=== PATIENT | male | born 1955 | race Caucasian/White ===

== ENCOUNTER 2019-06-05 11:22 | Emergency (ER) | payer OTHER ==
[~2019-06-05] VITALS: Ht 170 cm; Wt 81.0 kg
[2019-06-05] MEDS ORDERED: TETANUS,DIPTH,PERTUSS P/F (BOOSTRIX) 0.5 ML VIAL IM ONE (11:45)
[2019-06-05 12:05] LABS: BASOPHILS % (AUTO) 0 % (0-10); EOSINOPHILS # (AUTO) 0.1 10^3/uL (0.0-0.3); EOSINOPHILS % (AUTO) 1 % (0-10); HEMATOCRIT 35 % (40-54); HEMOGLOBIN 12.3 G/DL (13.3-17.7); LYMPHOCYTES # (AUTO) 0.6 X 10^3 (1.0-4.0); LYMPHOCYTES % (AUTO) 11 % (12-44); MEAN CORPUSCULAR HEMOGLOBIN 35 PG (25-34); MEAN CORPUSCULAR HGB CONC 35 G/DL (32-36); MEAN CORPUSCULAR VOLUME 100 FL (80-99); MONOCYTES # (AUTO) 0.6 X 10^3 (0.0-1.0); MONOCYTES % (AUTO) 11 % (0-12); NEUTROPHILS # (AUTO) 4.1 X 10^3 (1.8-7.8); NEUTROPHILS % (AUTO) 77 % (42-75); PLATELET COUNT 197 10^3/uL (130-400); RED CELL DISTRIBUTION WIDTH 12.8 % (10.0-14.5); WHITE BLOOD COUNT 5.4 10^3/uL (4.3-11.0)
[2019-06-05 12:17] LABS: INR 0.9 (0.8-1.4); PROTHROMBIN TIME PATIENT 12.8 SEC (12.2-14.7)
[2019-06-05 12:20] LABS: CREATININE SERUM 1.49 MG/DL (0.60-1.30); POTASSIUM 4.1 MMOL/L (3.6-5.0)
[2019-06-05 12:21] LABS: ALBUMIN 4.4 GM/DL (3.2-4.5); BILIRUBIN,TOTAL 0.8 MG/DL (0.1-1.0); CALCIUM 9.8 MG/DL (8.5-10.1); TOTAL PROTEIN 7.6 GM/DL (6.4-8.2)
[2019-06-05 12:33] LABS: ERYTHROCYTE SEDIMENTATION RATE 58 MM/HR (0-30)
--- NOTE | 2019-06-05 12:54 | Diagnostic Imaging Report ---
INDICATION: Pain and swelling. FINDINGS: There is a markedly comminuted fracture of the calcaneus with loss of Boehler's angle. There is no other fracture or dislocation. Soft tissues are unremarkable. IMPRESSION: Markedly comminuted calcaneal fracture. Dictated by: Dictated on workstation # [id number]
--- NOTE | 2019-06-05 13:09 | Diagnostic Imaging Report ---
PROCEDURE: CT right lower extremity without contrast. TECHNIQUE: Axially acquired CT was obtained through the right lower extremity without intravenous contrast. Coronal and sagittal reformations were also performed. Auto Exposure Controls were utilized during the CT exam to meet ALARA standards for radiation dose reduction. INDICATION: Pain. FINDINGS: There is a markedly comminuted fracture of the calcaneus with loss of Boehler's angle. The plafond and talar dome remain intact. Ankle mortise is symmetric. There is no other fracture or dislocation. Soft tissues are grossly unremarkable apart from swelling. There are degenerative changes of first metatarsophalangeal joint. IMPRESSION: Markedly comminuted fracture of the os calcis. Degenerative changes of the first metatarsophalangeal joint. Dictated by: Dictated on workstation # [id number]
--- NOTE | 2019-06-05 13:10 | Diagnostic Imaging Report ---
INDICATION: Injury to right ankle. AP, oblique, and lateral views of the right ankle are obtained. There is a markedly comminuted fracture of the calcaneus, with extension to the talocalcaneal joints. There is a calcification inferior to the medial malleolus of the distal tibia of uncertain age. There is calcification lateral to the lateral malleolus which is also of uncertain age. There are vascular calcifications. IMPRESSION: Markedly comminuted fracture of the calcaneus as described above. There are calcifications near the lateral and medial malleoli which are of uncertain age but likely chronic. Dictated by: Dictated on workstation # [id number]
--- NOTE | 2019-06-05 13:47 | Diagnostic Imaging Report ---
PROCEDURE: US right lower extremity venous. TECHNIQUE: Multiple real-time grayscale images were obtained over the right lower extremity in various projections. Additional spectral analysis and color Doppler duplex images were also obtained. INDICATION: Pain and swelling. FINDINGS: The right common femoral, superficial femoral, popliteal veins and tibial veins demonstrate normal response to compression, augmentation, and Valsalva. There are no right lower extremity fluid collections or masses. IMPRESSION: No evidence of deep vein thrombosis in the right lower extremity. Dictated by: Dictated on workstation # [id number]
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
--- NOTE | 2019-06-05 13:58 | Diagnostic Imaging Report ---
INDICATION: Broken foot. TECHNIQUE: Multiple real-time grayscale images were obtained of the right lower extremity in various projections. The postoperative color Doppler images were also obtained FINDINGS: There are normal triphasic waveforms in the right common femoral artery, superficial femoral artery and popliteal artery. There are monophasic waveforms in the distal posterior tibial and dorsalis pedis artery compatible with small vessel disease. There are no abnormal fluid collections or masses. IMPRESSION: Findings suspect for small vessel disease below the knee. Proximal arterial system is widely patent Dictated by: Dictated on workstation # [id number]
[2019-06-05] MEDS ORDERED: ceFAZolin INJECTION 1,000 MG in WATER (STERILE) FOR INJECTION 10 ML IV ONE (14:15)
[2019-06-05] MEDS ORDERED: VANCOMYCIN INJECTION 1,000 MG in NS (IVPB) 250 ML IV ONE (14:15)
[2019-06-05] MEDS ORDERED: LOSA100T57 PO (14:54)
[2019-06-05] MEDS ORDERED: SULF1TAB35 PO (14:54)
[2019-06-05] MEDS ORDERED: ASPI-586 PO (14:54)
[2019-06-05] MEDS ORDERED: HYDROCHLOROT PO (14:54)
[2019-06-05] MEDS ORDERED: ATOR40TA70 PO (14:54)
[2019-06-05] MEDS ORDERED: AMLO10TA7 PO (14:54)
[2019-06-05] MEDS ORDERED: LACTATED RINGERS 1,000 ML IV ONE ×2 (15:07→15:11)
[2019-06-05] MEDS ORDERED: MUPIROCIN 2% OINT 22 GM (BACTROBAN) TUBE ONE (15:11)
[2019-06-05 17:59] VITALS: BP 134/73
[2019-06-05] MEDS ORDERED: MUPIROCIN 2% OINT 22 GM (BACTROBAN) TUBE TOP SCH (21:00)
== END 2019-06-05 17:58 | disposition short-term general hospital (02) ==
LOC: EDUNIT# 11:22 → ER 11:25
DX: S92.001A Unspecified fracture of right calcaneus, initial encounter for closed fracture (principal); L03.115 Cellulitis of right lower limb; I10 Essential (primary) hypertension; E78.00 Pure hypercholesterolemia, unspecified; K21.9 Gastro-esophageal reflux disease without esophagitis; F17.210 Nicotine dependence, cigarettes, uncomplicated; Z23 Encounter for immunization; Z79.82 Long term (current) use of aspirin; W23.1XXA Caught, crushed, jammed, or pinched between stationary objects, initial encounter
CPT/HCPCS: 36415; 73610; 73630; 73700; 80053; 83605; 85025; 85610; 85652; 85730; 86141; 87040; 87070; 87077; 87186; 87205; 90471; 90715; 93926; 96361; 96365; 96375

== ENCOUNTER → 2020-07-30 | Outpatient (CLI) | payer OTHER ==
[~2020-07-30] MED LIST: AMLO-251 PO; ASPI-586 PO; ATOR40TA70 PO; HYDROCHLOROT PO; LOSA100T57 PO; SULF1TAB35 PO
== END ==
LOC: CARD 11:18
PROVIDERS: ATTEND Internal Medicine Cardiovascular Disease
DX: I51.7 Cardiomegaly (principal)
CPT/HCPCS: 93306

== ENCOUNTER → 2020-08-20 | Outpatient (CLI) | payer OTHER ==
[~2020-08-20] VITALS: Ht 167 cm; Wt 82.0 kg
[~2020-08-20] MED LIST changes: +CATHETER FLUSH 10 ML SYR IV PRN; +REGADENOSON 0.4 MG/5 ML SYR (LEXISCAN) IV ONE
[2020-08-20 12:47] VITALS: BP 147/80
--- NOTE | 2020-08-20 14:44 | Cardiology Stress Test Report ---
Stress Test Report Date of Procedure/Referring: Date of Procedure: Aug 20, 2020 PCP Fernando Tolbert MD Admitting Physician Jolynn Thao DO Indications: Chest pain Baseline Heart Rate: 63 Baseline Blood Pressure: Blood Pressure Systolic: 147 Blood Pressure Diastolic: 80 Baseline Vitals Vital Signs Date Time Temp Pulse Resp B/P (MAP) Pulse Ox O2 Delivery O2 Flow Rate FiO2 08/20/20 12:47 62 18 147/80 (102) 97 Room Air Baseline EKG: Baseline EKG: normal sinus rhythm Summary After explaining the procedure to the patient, he signed a consent and then brought to the stress nuclear laboratory. Patient received 0.4 mg Lexiscan for stress test, ECG, heart rate and blood pressure were monitored continuously. Resting and stress dose of radio tracer were injected, imaging was acquired and reviewed in short axis, horizontal long axis and vertical long axis views. TID: 1.01 SSS: 8 SDS: 4 EF: 50 1. Patient tolerated Lexiscan well 2. Diaphragmatic attenuation with decreased uptake involving the mid to apical inferior wall and inferolateral wall with mild reversibility 3. Normal left ventricular size, EF 50 percent FERNANDO TOLBERT MD Aug 20, 2020 14:44
== END ==
LOC: CARD 11:15
PROVIDERS: ATTEND Internal Medicine Cardiovascular Disease
DX: R07.9 Chest pain, unspecified (principal)
CPT/HCPCS: 78452; 93017; A9502

== ENCOUNTER 2020-08-27 13:00 | Day surgery (SDC) | payer OTHER ==
[2020-08-27] VITALS (11 sets, daily range): BP systolic 117–155; BP diastolic 70–90
[~2020-08-27] VITALS: Ht 172 cm; Wt 82.0 kg
[2020-08-27 11:36] LABS: HEMOGLOBIN 17.6 g/dL (13.3-17.7); MEAN PLATELET VOLUME 9.2 fL (9.0-12.2); WHITE BLOOD COUNT 5.5 10^3/uL (4.3-11.0)
[2020-08-27 11:41] LABS: BILIRUBIN,URINE NEGATIVE (NEGATIVE); CLARITY,URINE CLEAR; COLOR,URINE YELLOW; GLUCOSE, URINE (UA) NEGATIVE (NEGATIVE); KETONES,URINE NEGATIVE (NEGATIVE); LEUKOCYTE ESTERASE ,URINE NEGATIVE (NEGATIVE); NITRITE,URINE NEGATIVE (NEGATIVE); PROTEIN,URINE NEGATIVE (NEGATIVE)
[2020-08-27 11:49] LABS: BACTERIA,URINE NEGATIVE /HPF; SQUAMOUS EPITHELIAL CELL,UR RARE /HPF
[2020-08-27 11:51] LABS: CHLORIDE 105 MMOL/L (98-107); POTASSIUM 4.6 MMOL/L (3.6-5.0); SODIUM 138 MMOL/L (135-145)
[2020-08-27 11:52] LABS: ALBUMIN 4.6 GM/DL (3.2-4.5)
[2020-08-27 11:53] LABS: CALCIUM 9.4 MG/DL (8.5-10.1)
[2020-08-27 11:54] LABS: GLUCOSE 94 MG/DL (70-105); PROTHROMBIN TIME PATIENT 13.2 SEC (12.2-14.7); TOTAL PROTEIN 8.1 GM/DL (6.4-8.2); TRIGLYCERIDES 200 MG/DL (<150); VLDL CHOLESTEROL 40 MG/DL (5-40)
[2020-08-27 11:55] LABS: CARBON DIOXIDE 23 MMOL/L (21-32)
[2020-08-27 11:56] LABS: BILIRUBIN,TOTAL 0.6 MG/DL (0.1-1.0)
[2020-08-27 11:58] LABS: ALKALINE PHOSPHATASE 108 U/L (40-136); CREATININE SERUM 1.11 MG/DL (0.60-1.30); GFR ESTIMATED > 60
[2020-08-27 11:59] LABS: BUN/CREATININE RATIO 11; CHOLESTEROL 220 MG/DL (< 200)
[2020-08-27 12:00] LABS: HDL CHOLESTEROL 45 MG/DL (40-60)
--- NOTE | 2020-08-27 12:00 | Diagnostic Imaging Report ---
INDICATION: Chest pain. EXAMINATION: Portable chest at 11:50 AM. FINDINGS: The heart size and pulmonary vascularity are normal. The lungs are clear. There are no effusions or pneumothoraces. IMPRESSION: No acute abnormalities in the chest. Dictated by: Dictated on workstation # [id number]
[2020-08-27 12:01] LABS: ALANINE AMINOTRANSFERASE 35 U/L (0-55)
--- NOTE | 2020-08-27 12:49 | Cardiac Procedure Note-CS/ASA ---
Pre-Procedure Note Pre-Op Procedure Note H&P Reviewed The H&P was reviewed, patient examined and no changes noted. Date H&P Reviewed: Aug 27, 2020 Time H&P Reviewed: 12:49 Conscious Sedation Pre-Proced Time 12:49 ASA Score 3 For ASA 3 and 4: Consider anesthesia and medical clearance. Also, for patients with a history of failed moderate sedation consider anesthesia. Airway Lungs Heart ASA score ASA 1: a normal healthy patient ASA 2: a patient with a mild systemic disease (mid diabetes, controlled hypertension, obesity x ASA 3: a patient with a severe systemic disease that limits activity (angina, COPD, prior Myocardial infarction) ASA 4: a patient with an incapacitating disease that is a constant threat to life (CHF, renal failure) ASA 5: a moribund patient not expected to survive 24 hrs. (ruptured aneurysm) ASA 6: a declared brain- patient whose organs are being harvested. For emergent operations, add the letter E after the classification Mallampati Classification Grade 3 Sedation Plan Analgesia, Amnesia, Plan communicated to team members, Discussed options with patient/fam, Discussed risks with patient/fam The patient is an appropriate candidate to undergo the planned procedure, sedation, and anesthesia. The patient immediately re-assessed prior to indication. FERNANDO HOSKINS MD Aug 27, 2020 12:49
[~2020-08-27 13:00] MED LIST changes: +ATOR10TA PO; -CATHETER FLUSH 10 ML SYR IV PRN; +HEParin (CATH LAB) 2,000 ML IV ONE; +LIDOCAINE 1% INJ 20 ML 20 ML VIAL ONE; +MIDAZOLAM 5 MG/5 ML (VERSED) VIAL ONE; +MTP25TSR PO; +NITRO DRIP 25000 MCG/D5W 0 ML IV ONE; +NS IV 1000 ML 1,000 ML IV SCH; +NS IV 1000 ML 1,000 ML ONE; +PATIENT MAY USE OWN MEDS, ALL PO SCH; -REGADENOSON 0.4 MG/5 ML SYR (LEXISCAN) IV ONE; +fentaNYL INJECTION 100 MCG/2 ML AMP ONE
--- NOTE | 2020-08-27 13:00 | Cardiac Cath Report ---
Cardiac Cath Report Physician (s)/Glove Turner (s) Physician FERNANDO HOSKINS MD Pre-Procedure Diagnosis Pre-Procedure Diagnosis: coronary artery disease Post-Procedure Note Procedure Start Date: Aug 27, 2020 Name of Procedure: Left heart catheterization Left ventriculogram Aortic arch angiogram Findings/Procedure Note PROCEDURE NOTE: 64 years old gentleman with history of recurrent chest pain, strong family history of heart disease, had an abnormal stress test scheduled for cardiac catheterization possible PTCA. After explaining the procedure to the patient, all pros and cons were explained, all questions were answered. The patient signed the consent and then he was placed on the cardiac catheterization laboratory. Groin was prepped SL fashion local anesthesia was used. Sheath placed in the right femoral artery. Keli right and left catheter were used to access the coronary system. Pigtail was used to access the left ventricular cavity. Left ventriculogram was done Aortic arch angiogram was done At the end of the procedure the sheath was removed. Closure device was deployed FINDINGS: Hemodynamics LV 114/20, end-diastolic pressure of 20 Aorta 120/62 main of 84 ANATOMY: Left Main is free of obstructive disease Left Anterior Descending has moderate to severe lesion in the midportion Left Circumflex has severe stenosis proximally Ramus intermedius/high obtuse marginal has moderate severe lesion at the midportion Right Coronory Artery is totally occluded at the ostium, getting filled by collaterals from the left LV Gram was done showing normal left ventricular size, mild hypokinesia at the inferior wall, ejection fraction 50 percent Aorta evaluation done with aortic arch angiogram showing normal aortic arch, no dissection or aneurysm, normal origin of the right innominate artery, left carotid artery and left subclavian artery CONCLUSION: 1. Severe multivessel coronary artery disease including occluded right coronary artery, severe proximal to mid right coronary artery stenosis and moderate to severe mid LAD stenosis, the ramus intermedius has moderate to severe lesion at the midportion. 2. Normal left ventricular size, mild hypokinesia at the inferior wall, ejection fraction 50 percent 3. Normal aortic arch and great vessels of the neck DISCUSSION AND RECOMMENDATION: I will arrange for evaluation for possible CABG versus high risk intervention as an outpatient Anesthesia Type: Conscious Sedation Estimated blood loss (mL): 20 ml Contrast Amount: 54 ml Total Radiation Dose: 457 mGy Post-Procedure Diagnosis Post-operative diagnosis: Chest pain Coronary artery disease Hypertension Hyperlipidemia FERNANDO HOSKINS MD Aug 27, 2020 13:00
== END 2020-08-27 17:35 ==
LOC: SDC 13:19 → CATH 17:35
PROVIDERS: ATTEND Internal Medicine Cardiovascular Disease
DX: I25.10 Atherosclerotic heart disease of native coronary artery without angina pectoris (principal); I10 Essential (primary) hypertension; E78.2 Mixed hyperlipidemia; F17.210 Nicotine dependence, cigarettes, uncomplicated; Z79.82 Long term (current) use of aspirin; Z79.899 Other long term (current) drug therapy; Z82.49 Family history of ischemic heart disease and other diseases of the circulatory system
CPT/HCPCS: 71045; 80053; 80061; 81000; 85027; 85610; 85730; 87081; 93458; C1760; C1894; 36415

== ENCOUNTER → 2020-09-01 | Outpatient (CLI) | payer OTHER ==
[~2020-09-01] MED LIST changes: -HEParin (CATH LAB) 2,000 ML IV ONE; -LIDOCAINE 1% INJ 20 ML 20 ML VIAL ONE; -MIDAZOLAM 5 MG/5 ML (VERSED) VIAL ONE; -NITRO DRIP 25000 MCG/D5W 0 ML IV ONE; -NS IV 1000 ML 1,000 ML IV SCH; -NS IV 1000 ML 1,000 ML ONE; -PATIENT MAY USE OWN MEDS, ALL PO SCH; -fentaNYL INJECTION 100 MCG/2 ML AMP ONE
--- NOTE | 2020-09-01 15:34 | Diagnostic Imaging Report ---
PROCEDURE: US carotid duplex, bilateral. TECHNIQUE: Multiple real-time grayscale images were obtained over the carotid arteries in various projections, bilaterally. Additional spectral analysis and color Doppler duplex images were also obtained. INDICATION: Coronary artery disease. FINDINGS: There is moderate plaque in bilateral carotid bulbs extending into the proximal internal carotid arteries bilaterally. This appears to be slightly greater on the right side than the left. No significant velocity elevation is seen. Right vertebral artery was not visualized. Left vertebral artery demonstrates antegrade flow. IMPRESSION: 1. Moderate bilateral carotid plaque. There is no evidence of a hemodynamically significant stenosis. 2. Nonvisualized right vertebral artery. Parameters based on the consensus panel Haas-Scale and Doppler ultrasound criteria published April 2003, Radiology, Volume 229. DOPPLER (peak systolic velocity M/S Right Left CCA .79 1.1 ICA Proximal 1.14 .97 ICA Mid 1.1 1.0 ICA Distal .91 .70 RATIO 1.4 .94 ECA 1.32 1.27 VERT NA .43 Dictated by: Dictated on workstation # [id number]
== END ==
LOC: RAD 12:30
PROVIDERS: ATTEND Thoracic Surgery (Cardiothoracic Vascular Surgery)
DX: I25.118 Atherosclerotic heart disease of native coronary artery with other forms of angina pectoris (principal); I65.23 Occlusion and stenosis of bilateral carotid arteries
CPT/HCPCS: 93880

== ENCOUNTER → 2020-09-26 | Outpatient (CLI) | payer OTHER | LOC: LABNPT 08:52 | PROVIDERS: ATTEND Neurological Surgery | DX: Z20.822 Contact with and (suspected) exposure to COVID-19 (principal) | CPT/HCPCS: 87635 ==

== ENCOUNTER → 2020-10-21 | Outpatient (CLI) | payer OTHER ==
[2020-10-21 11:43] LABS: BUN/CREATININE RATIO 11; CALCIUM 9.8 MG/DL (8.5-10.1); CARBON DIOXIDE 21 MMOL/L (21-32); CHLORIDE 97 MMOL/L (98-107); CREATININE SERUM 1.09 MG/DL (0.60-1.30); GFR ESTIMATED > 60; GLUCOSE 106 MG/DL (70-105); SODIUM 131 MMOL/L (135-145)
== END ==
LOC: LAB 10:57
PROVIDERS: ATTEND Physician Assistant
DX: E87.6 Hypokalemia (principal)
CPT/HCPCS: 36415; 80048

== ENCOUNTER → 2021-12-23 | Outpatient (CLI) | payer OTHER ==
[~2021-12-23] VITALS: Ht 170.2 cm; Wt 80.7 kg
[~2021-12-23] MED LIST changes: -SULF1TAB35 PO; +SULF1TAB38 PO
== END | disposition home or self-care (01) ==
LOC: PREOP 06:05
PROVIDERS: ATTEND Internal Medicine
DX: Z01.818 Encounter for other preprocedural examination (principal)

== ENCOUNTER → 2022-03-16 | Outpatient (CLI) | payer OTHER ==
[~2022-03-16] MED LIST changes: +CATHETER FLUSH 10 ML SYR IV PRN; +HOLD METFORMIN - RECEIVED CONTRAST 20 ML VIAL IV SCH; +IOHEXOL 350 MG/ML 100 ML (OMNIPAQUE 350) VIAL IV ONE; +NS 100 ML (IVPB) BAG IV ONE
--- NOTE | 2022-03-16 16:48 | Diagnostic Imaging Report ---
REASON FOR EXAM: Bilateral carotid artery stenosis. TIME OF EXAM: 03/16/2022 11:16 AM COMPARISON: 09/01/2020. TECHNIQUE: Contrast-enhanced thin section helical images were obtained from the mediastinum to the sella with the bolus of contrast timed for the optimal opacification of the arterial structures of the neck per departmental CTA protocol. Postprocessing and retro-reconstruction with coronal and sagittal reformatted images of the angiographic views of the vessels were obtained and were reviewed. 3D reformatted images were generated on a separate workstation and were reviewed. All CT scans use one or more of the following dose optimizing techniques: automated exposure control, MA and/or KvP adjustment based on patient size and exam type or iterative reconstruction. FINDINGS: The visualized portions of the aortic arch demonstrate no evidence of aneurysm or dissection. There is conventional branching pattern of the great vessels of the aorta. The brachiocephalic artery is normal in course and caliber. The right and left common carotid origins are unremarkable. The origin of the left subclavian artery is patent. The common carotid arteries and internal carotid arteries demonstrate a normal course. There is calcified atherosclerotic plaque in the bilateral carotid bulbs and proximal internal carotid arteries. There is 50 to 69% stenosis in the proximal left ICA based on NASCET criteria. Less than 50% stenosis is seen in the right internal carotid artery. No evidence of dissection in the carotid systems. The external carotid arteries are patent and unremarkable. There is occlusion at the origin of the right vertebral artery. There is reconstitution of flow within the right vertebral artery at the C2-C3 level, likely due to retrograde flow. The origin of the left vertebral artery is off the left subclavian artery. There is stenosis of approximately 80 to 90% at the origin of the left vertebral artery. The remainder of the left vertebral artery is patent. No dissection is seen in the left vertebral artery. The included [place] is unremarkable. The osseous structures of the cervical spine are unremarkable. Included views through the lung apices demonstrate no focal consolidation. IMPRESSION: 1. Stenosis of 50 to 69% in the proximal left ICA secondary to atherosclerotic plaque. 2. Occlusion of the origin of the right vertebral artery with reconstitution of flow at the C2-C3 level, likely due to retrograde flow. 3. Stenosis of approximately 80 to 90% at the origin of the left vertebral artery. Dictated by: Dictated on workstation # [id number]
== END ==
LOC: RAD 10:18
PROVIDERS: ATTEND Physician Assistant
DX: I65.23 Occlusion and stenosis of bilateral carotid arteries (principal); I10 Essential (primary) hypertension
CPT/HCPCS: 36415; 70498; 82565; 84520

== ENCOUNTER → 2022-03-31 | Outpatient (CLI) | payer OTHER ==
[~2022-03-31] MED LIST changes: -CATHETER FLUSH 10 ML SYR IV PRN; -HOLD METFORMIN - RECEIVED CONTRAST 20 ML VIAL IV SCH; -IOHEXOL 350 MG/ML 100 ML (OMNIPAQUE 350) VIAL IV ONE; -NS 100 ML (IVPB) BAG IV ONE; +REGADENOSON 0.4 MG/5 ML SYR (LEXISCAN) IV ONE
[2022-03-31] MEDS: CATHETER FLUSH 10 ML SYR IVP PRN ×2 (08:00→09:37)
[2022-03-31 09:28] VITALS: BP 135/85
--- NOTE | 2022-03-31 11:34 | Cardiology Stress Test Report ---
Stress Test Report Date of Procedure/Referring: Date of Procedure: Mar 31, 2022 PCP Jolynn Thao DO Admitting Physician Admitting Physician: Attending Physician: Alverto Tolbert MD Indications: CAD Baseline Heart Rate: 52 Baseline Blood Pressure: Blood Pressure Systolic: 135 Blood Pressure Diastolic: 85 Baseline Vitals Vital Signs Date Time Temp Pulse Resp B/P (MAP) Pulse Ox O2 Delivery O2 Flow Rate FiO2 03/31/22 09:28 51 20 135/85 (102) 99 Room Air Baseline EKG: Baseline EKG: NSR Summary After explaining the procedure to the patient, he signed a consent and then brought to the stress nuclear laboratory. Patient received 0.4 mg Lexiscan for stress test, ECG, heart rate and blood pressure were monitored continuously. Resting and stress dose of radio tracer were injected, imaging was acquired and reviewed in short axis, horizontal long axis and vertical long axis views. TID: 1.22 SSS: 0 SDS: 0 EF: 53 1. Patient tolerated Lexiscan well 2. No significant ischemia or infarction noted on SPECT images 3. Normal left ventricular size, ejection fraction 53% 4. Transient ischemic dilatation 1.22 suggestive of multivessel coronary artery disease Copy Copies To 1: JOLYNN THAO BASHAR J MD Mar 31, 2022 11:34
== END ==
LOC: CARD 07:41
PROVIDERS: ATTEND Internal Medicine Cardiovascular Disease
DX: I25.10 Atherosclerotic heart disease of native coronary artery without angina pectoris (principal)
CPT/HCPCS: 78452; 93017

== ENCOUNTER 2022-06-16 14:42 | Outpatient (CLI) | payer OTHER ==
[~2022-06-16] VITALS: Ht 170.2 cm; Wt 80.3 kg
[~2022-06-16 14:42] MED LIST changes: -REGADENOSON 0.4 MG/5 ML SYR (LEXISCAN) IV ONE
[2022-06-18] MEDS ORDERED: ATOR40TA70 PO (11:55)
[2022-06-18] MEDS ORDERED: HYDR-3923 PO (11:55)
[2022-06-18] MEDS ORDERED: NEBI20TA6 PO (11:55)
== END 2022-06-18 12:06 | disposition home or self-care (01) ==
LOC: PREOP 14:42
PROVIDERS: ATTEND Internal Medicine
DX: Z01.818 Encounter for other preprocedural examination (principal)

== ENCOUNTER 2022-06-25 07:53 | Day surgery (SDC) | payer OTHER ==
--- NOTE | 2021-12-22 19:47 | HISTORY AND PHYSICAL ---
DATE OF SERVICE: COLONOSCOPY HISTORY AND PHYSICAL HISTORY OF PRESENT ILLNESS: The patient is a 65-year-old white male referred by Dr. Thao for screening colonoscopy. I performed his last colonoscopy 10 years ago at which time he did have one subcentimeter tubular adenoma removed from the proximal sigmoid colon with no other evidence for neoplasia. He denies bright red blood per rectum, melena, abdominal pain, diarrhea, constipation or change in weight. PAST MEDICAL HISTORY: Pertinent for coronary artery disease. He underwent bypass surgery several years ago and has had no problems since. He was started on baby aspirin and atorvastatin at that time. He has history of hypertension. He is on metoprolol and hydralazine. He has had no reported admissions for heart failure. He does have past history of gastroesophageal reflux that required Mily fundoplication. The remainder of his past surgical history is significant for laminectomy of the lumbar spine and foot surgery. He denies dysphagia. He has also had tonsillectomy and adenoidectomy as a child. SOCIAL HISTORY: Currently he is disabled secondary to his back. He has 80-vxib-jlds smoking history, still smoking about half a pack of cigarettes per day. He reports occasional social alcohol intake. FAMILY HISTORY: He is not aware of any history for GI tract malignancy. His dad and two brothers had prostate cancer. His father of an PR and complications of a CVA as well at the age of 92. His mother shortly after 91. REVIEW OF SYSTEMS: CONSTITUTIONAL: Denies night sweats, chills, fever, change in weight. GASTROINTESTINAL: As per HPI. CARDIOVASCULAR: Denies chest pain, orthopnea, PND, pedal edema, syncope or presyncope. PULMONARY: Reports stable cough, minimally productive, not clear sputum with no shortness of breath or chest pain. PHYSICAL EXAMINATION: GENERAL: Reveals a well-appearing white male in no acute distress. VITAL SIGNS: Weight 178 pounds, blood pressure 126/68. HEENT: Unremarkable. Sclerae nonicteric. CHEST: Clear to auscultation. CARDIOVASCULAR: Reveals a regular rate and rhythm without significant murmur, S3 or S4. ABDOMEN: Soft, supple without mass, organomegaly or tenderness. EXTREMITIES: Reveal no cyanosis, clubbing or edema. ASSESSMENT AND PLAN: The patient is being set up for screening colonoscopy. [facility] given and questions were answered. Electronic medical record was reviewed. I thank you for the referral of this pleasant gentleman. Job ID: [id number] DocumentID: [id number] Dictated Date: 12/21/2021 16:01:11 Liability Claims Representative Date: 12/21/2021 17:49:01 Dictated By: CURTIS MOSELEY MD
--- NOTE | 2022-06-16 17:04 | HISTORY AND PHYSICAL ---
DATE OF SERVICE: 06/25/2022 COLONOSCOPY HISTORY AND PHYSICAL HISTORY OF PRESENT ILLNESS: The patient is a 66-year-old white male referred for screening colonoscopy. I had originally performed colonoscopy on him, but 11 years ago, at which time, he had one small tubular adenoma removed from the proximal sigmoid colon with no other evidence for neoplasia. He denies bright red blood per rectum, diarrhea, constipation, abdominal pain, or change in weight. PAST MEDICAL HISTORY: Significant for coronary artery disease, he underwent bypass surgery 2 or 3 years ago, has had no heart problems since, he has history of hypertension. PAST SURGICAL HISTORY: Significant for laminectomy in lumbar spine, some foot surgery and then his bypass surgery. As a child, he had tonsillectomy and adenoidectomy. SOCIAL HISTORY: He is disabled secondary to his back. He has a 40+ pack year smoking history, still ongoing, smoking about 3/4 of pack of cigarettes per day. Currently, he reports occasional small volume alcohol intake. FAMILY HISTORY: He is not aware of any family history of GI tract malignancy. He has had 2 brothers with prostate cancer. His father had a heart attack and of complications of CVA at the age of 92 and mother shortly thereafter at age 91, unknown cause. PHYSICAL EXAMINATION: GENERAL: Reveals a well-appearing white male in no acute distress. VITAL SIGNS: Blood pressure 120/82, weight 177 pounds. HEENT: Unremarkable. Mallampati 1. Oropharyngeal configuration. No erythema or exudate noted. CHEST: Clear to auscultation. CARDIOVASCULAR: Reveals a regular rate and rhythm without murmur, S3, or S4. ABDOMEN: Soft, supple without mass, organomegaly, or tenderness. He does have evidence for diastasis recti and a very small ventral hernia above the umbilicus oriented toward the right. Nontender. No symptoms reported. States this has been stable for many years. EXTREMITIES: Without cyanosis, clubbing or edema. ASSESSMENT: The patient is set up for a screening colonoscopy. Prep instructions were given and questions were answered. Job ID: [id number] DocumentID: [id number] Dictated Date: 06/16/2022 16:18:42 Metal Weather Stripper Date: 06/16/2022 17:02:00 Dictated By: CURTIS MOSELEY MD
[~2022-06-25] VITALS: Ht 170 cm; Wt 80.3 kg
[~2022-06-25 07:53] MED LIST changes: +HYDR-3923 PO; +NEBI20TA6 PO
[2022-06-25] MEDS ORDERED: LACTATED RINGERS 1,000 ML IV STA (07:58)
[2022-06-25 08:13] VITALS: BP 126/60
--- NOTE | 2022-06-25 08:39 | Pre-Op Note & Conscious Sedat ---
Pre-Operative Progress Note Date H&P Reviewed: Jun 25, 2022 Time H&P Reviewed: 08:38 History & Physical: H&P Reviewed, Patient Examed, No changes noted Pre-Op Diagnosis: screening Conscious Sedation Pre-Proced ASA Score 2 For ASA 3 and 4: Consider anesthesia and medical clearance. Also, for patients with a history of failed moderate sedation consider anesthesia. Airway Lungs Heart ASA score ASA 1: a normal healthy patient ASA 2: a patient with a mild systemic disease (mid diabetes, controlled hypertension, obesity ASA 3: a patient with a severe systemic disease that limits activity (angina, COPD, prior Myocardial infarction) ASA 4: a patient with an incapacitating disease that is a constant threat to life (CHF, renal failure) ASA 5: a moribund patient not expected to survive 24 hrs. (ruptured aneurysm) ASA 6: a declared brain- patient whose organs are being harvested. For emergent operations, add the letter E after the classification Mallampati Classification Grade 2 Sedation Plan Analgesia, Amnesia, Plan communicated to team members, Discussed options with patient/fam, Discussed risks with patient/fam The patient is an appropriate candidate to undergo the planned procedure, sedation, and anesthesia. The patient immediately re-assessed prior to indication. CURTIS MOSELEY MD Jun 25, 2022 08:39
[2022-06-25] MEDS ORDERED: PROPOFOL INJECTION 50 ML IV ONE ×2 (09:16→09:42)
[2022-06-25] MEDS ORDERED: MIDAZOLAM 2 MG/2 ML (VERSED) VIAL ONE (09:16)
[2022-06-25 10:08] VITALS: BP 92/55
--- NOTE | 2022-06-25 10:10 | Anesthesia-General Post-Op ---
MAC Patient Condition Mental Status/LOC: Same as Preop Cardiovascular: Satisfactory Nausea/Vomiting: Absent Respiratory: Satisfactory Pain: Controlled Complications: Absent Post Op Complications Complications None Follow Up Care/Instructions Patient Instructions None needed. Anesthesiology Discharge Order Discharge Order Patient is doing well, no complaints, stable vital signs, no apparent adverse anesthesia problems. No complications reported per nursing. FABIEN HULL CRNA Jun 25, 2022 10:10
[2022-06-25 10:13] VITALS: BP 92/55
[2022-06-25 10:18] VITALS: BP 94/55
--- NOTE | 2022-06-25 10:18 | Progress Note-Post Operative ---
Post-Procedure Note Physician (s)/Shuttle Threader (s) Physician CURTIS MOSELEY MD Pre-Procedure Diagnosis Pre-Procedure Diagnosis: screening Post-Procedure Diagnosis Post-operative diagnosis: Prior to undergoing colonoscopy digital rectal evaluation was performed. Anal sphincter tone was normal and the perianal reflexes intact. No evidence for external hemorrhoids were noted. Digital evaluation the prostate anal canal and distal rectum was unremarkable prostate is not enlarged no nodularity noted. The colonoscope was then inserted into the rectum and under direct visualization advanced to the cecum. The cecum was identified by identification of the ileocecal valve and the cecal strap. Photographic documentation was obtained. A careful inspection was made as loss of was withdrawn. Quality prep was good. Findings there were no evidence for /external hemorrhoids. 1 grade 1 internal hemorrhoid complex was noted and some telangiectatic blood vessel changes noted in the anal canal proximally. 4 to 5 mm hyperplastic appearing polyps were noted in the mid rectum proximal rectum and 2 adjacent in the distal sigmoid colon. All were biopsied and ablated with no subsequent blood loss. Mild to moderate diverticular disease confined to the sigmoid colon was present without evidence for diverticulitis. The descending colon splenic flexure transverse colon hepatic flexure ascending colon and cecum were unremarkable. A/P 1. 5 hyperplastic appearing polyps were removed via hot forceps from the distal sigmoid colon and rectum as noted above with no subsequent blood loss. As long as there are no surprises on histopathology report would advocate consideration for repeat screening colonoscopy in 10 years. 2. 1 grade 1 internal hemorrhoid complex was noted. 3. Mild to moderate diverticular disease confined to the sigmoid colon is present without evidence for diverticulitis. CC: Dr. Jolynn MOSELEY,CURTIS Elias MD Jun 25, 2022 10:18
[2022-06-25 10:23] VITALS: BP 116/59
[2022-06-25 10:40] VITALS: BP 116/59
== END 2022-06-25 10:52 | disposition home or self-care (01) ==
LOC: ENDO 07:53
PROVIDERS: ATTEND Internal Medicine
DX: Z12.11 Encounter for screening for malignant neoplasm of colon (principal); K57.30 Diverticulosis of large intestine without perforation or abscess without bleeding; K64.8 Other hemorrhoids; K63.5 Polyp of colon; K62.1 Rectal polyp; F17.210 Nicotine dependence, cigarettes, uncomplicated; Z28.310 Unvaccinated for COVID-19

== ENCOUNTER → 2022-09-01 | Outpatient (CLI) | payer OTHER | END | disposition home or self-care (01) | LOC: PREOP 05:27 | PROVIDERS: ATTEND Orthopaedic Surgery | DX: Z01.818 Encounter for other preprocedural examination (principal) ==

== ENCOUNTER 2022-09-15 05:32 | Outpatient (CLI) | payer OTHER ==
[~2022-09-15] VITALS: Ht 171.5 cm; Wt 79.5 kg
[2022-09-15] MEDS ORDERED: NEBI5TAB11 PO (12:41)
[2022-09-15] MEDS ORDERED: SILD20TA14 PO (12:41)
== END 2022-09-15 12:48 | disposition home or self-care (01) ==
LOC: PREOP 05:32
PROVIDERS: ATTEND Orthopaedic Surgery
DX: Z01.818 Encounter for other preprocedural examination (principal)

== ENCOUNTER 2022-09-22 10:10 | Day surgery (SDC) | payer OTHER ==
--- NOTE | 2022-09-15 06:59 | HISTORY AND PHYSICAL ---
DATE OF SERVICE: 09/22/2022 ADMISSION HISTORY AND PHYSICAL REASON FOR ADMISSION: Outpatient surgery on 09/22/2022 for left carpal tunnel release. HISTORY OF PRESENT ILLNESS: The patient is a 66-year-old right hand dominant darnell with complaints of left wrist pain for greater than 6 months. He has tried stretching, bracing, gloves and splinting without relief. Due to functional impairment and failure to improve with conservative measures, the patient has elected to proceed with surgical intervention. He reports pain and paresthesias into his hand. He reports activity limitations because of this. He does report night pain. REVIEW OF SYSTEMS: No chest pain, no shortness of breath. No dysuria. PAST MEDICAL HISTORY: Hypertension. PAST SURGICAL HISTORY: Rotator cuff. FAMILY HISTORY: Noncontributory. PRIMARY CARE PROVIDER: JEOVANY Huynh MEDICATIONS: Atorvastatin, amlodipine, losartan, hydrochlorothiazide, aspirin. ALLERGIES: No known drug allergies. SOCIAL HISTORY: The patient smokes 1 pack per day. Drinks alcohol socially. PHYSICAL EXAMINATION: GENERAL: The patient is well-developed, well-nourished, in no acute distress. HEENT: Normocephalic, atraumatic. Pupils are equal, round and reactive to light. Oropharynx is clear. NECK: Supple. No lymphadenopathy. LUNGS: Clear to auscultation bilaterally. HEART: Regular rate and rhythm. ABDOMEN: Soft, nontender, nondistended. EXTREMITIES: The left wrist demonstrates a positive Tinel's at the carpal tunnel. He has decreased sensation in the median distribution. No gross thenar atrophy is noted. IMPRESSION: Left carpal tunnel syndrome. PLAN: Left carpal tunnel release. The risks, benefits, options, ramifications and recovery were discussed at length with the patient. He understands and wishes to proceed. Job ID: [id number] DocumentID: [id number] Dictated Date: 09/10/2022 12:17:04 Varnish Filterer Date: 09/11/2022 03:37:00 Dictated By: JESSI ENG MD
[~2022-09-22] VITALS: Ht 171.5 cm; Wt 79.5 kg
[2022-09-22] VITALS (7 sets, daily range): BP systolic 114–184; BP diastolic 71–91
[~2022-09-22 10:10] MED LIST changes: +HYDROcodone/APAP 7.5 MG/325 MG (LORTAB, LORCET PLUS) TABLET PO PRN; +NEBI5TAB11 PO; +SILD20TA14 PO
[2022-09-22] MEDS ORDERED: ceFAZolin INJECTION 2,000 MG in NS (IVPB) 50 ML IV ONE (10:30)
[2022-09-22] MEDS ORDERED: LACTATED RINGERS 1,000 ML IV PRN (10:30)
--- NOTE | 2022-09-22 10:50 | Progress Note-Pre Operative ---
Pre-Operative Progress Note Date of Available H&P: Sep 09, 2022 Date H&P Reviewed: Sep 22, 2022 Time H&P Reviewed: 10:50 Changes from last HP none Pre-Operative Diagnosis: left carpal tunnel syndrome JESSI ENG MD Sep 22, 2022 10:50
--- NOTE | 2022-09-22 10:51 | Progress Note-Post Operative ---
Post-Operative Progess Note Surgeon (s)/Development Administrator (s) Surgeon JESSI ENG MD Development Administrator: Lex Jaquez Pre-Operative Diagnosis left carpal tunnel syndrome Post-Operative Diagnosis left carpal tunnel syndrome Procedure & Operative Findings Date of Procedure 09/22/22 Procedure Performed/Findings left carpal tunnel release Anesthesia Type MAC plus local Estimated Blood Loss Estimated blood loss (mL): minimal Specimens/Packing Specimens Removed none Packing: none JESSI ENG MD Sep 22, 2022 10:51
[2022-09-22] MEDS ORDERED: LIDOCAINE 1% INJ 20 ML VIAL ONE (11:06)
[2022-09-22] MEDS ORDERED: BUPIVACAINE 0.5% 30 ML (SENSORCAINE) VIAL ONE (11:06)
[2022-09-22] MEDS ORDERED: NS (IVPB) 50 ML ONE (11:11)
[2022-09-22] MEDS ORDERED: MIDAZOLAM 2 MG/2 ML (VERSED) VIAL ONE (11:16)
[2022-09-22] MEDS ORDERED: PROPOFOL INJECTION 50 ML IV ONE (11:55)
[2022-09-22] MEDS ORDERED: LIDOCAINE 1% INJ 20 ML VIAL INJ ONE (11:58)
[2022-09-22] MEDS ORDERED: BUPIVACAINE 0.5% 30 ML (SENSORCAINE) VIAL INJ ONE (11:58)
--- NOTE | 2022-09-22 12:06 | Anesthesia-General Post-Op ---
MAC Patient Condition Mental Status/LOC: Same as Preop Cardiovascular: Satisfactory Nausea/Vomiting: Absent Respiratory: Satisfactory Pain: Controlled Complications: Absent Post Op Complications Complications None Follow Up Care/Instructions Patient Instructions None needed. Anesthesiology Discharge Order Discharge Order Patient is doing well in PACU with no complaints, stable vital signs, no apparent adverse anesthesia problems. No complications reported per nursing. MODESTO SINHA DO Sep 22, 2022 12:06
[2022-09-22] MEDS ORDERED: ONDANSETRON 4 MG/2 ML (SDV) Z0FRAN IVP PRN (12:15)
[2022-09-22] MEDS ORDERED: morphine INJ 10 MG/ML 1ML (SYR OR VIAL) IVP ONE (12:15)
--- NOTE | 2022-09-22 17:35 | OPERATIVE REPORT ---
DATE OF SERVICE: 09/22/2022 PREOPERATIVE DIAGNOSIS: Left carpal tunnel syndrome. POSTOPERATIVE DIAGNOSIS: Left carpal tunnel syndrome. PROCEDURE: Left open carpal tunnel release. SURGEON: Dawson Eng MD TELEVISION CABLE INSTALLER: Lex Jaquez, who assisted throughout the procedure and closed the incision. ANESTHESIA: Monitored anesthesia care plus local by Marlon Vega DO. ESTIMATED BLOOD LOSS: Minimal. DRAINS: None. COMPLICATIONS: None. POSTOPERATIVE PLAN: Routine protocol. The patient was transported to the recovery room awake and stable condition. STATEMENT OF MEDICAL NECESSITY: The patient is a 66-year-old right hand dominant gentleman with complaints of left hand paresthesias. He had a positive Tinel's of carpal tunnel, positive Phalen's maneuver. He tried rest, activity modifications and splinting without relief. Due to functional impairment and failure to improve with conservative measures, the patient elected to proceed with surgical intervention. DESCRIPTION OF PROCEDURE: After risks and benefits of the procedure were discussed and questions were answered and informed consent was signed and placed on chart. The operative site was confirmed in the preoperative holding area, initialed by surgeon. The patient was then transferred to the operating room and after adequate levels of monitored anesthesia care obtained, a timeout was called, confirming the operative site and under sterile conditions, the incision site was infiltrated with a combination of plain lidocaine and plain Marcaine. The left upper extremity was prepped and draped in the usual sterile fashion with arm elevated, tourniquet was inflated to 250 mmHg. A longitudinal incision was made in line with the radial border of the ring finger. The underlying soft tissues were sharply dissected. The transverse carpal ligament was identified and sharply incised by pushing through with the scalpel blade. The median nerve was carefully protected throughout the procedure and intact at the conclusion of the procedure. Distally, this was confirmed, fully released under direct visualization and proximally the transverse carpal ligament was spread above and below with dissection scissors and then opened with a slightly open scissor edges. This was confirmed, fully released with a Burlison. The tourniquet was deflated for a total time of 3 minutes. Pressure was used for hemostasis. Wound was further irrigated and closed with 4-0 nylon running alternating horizontal mattress fashion. A soft dressing and splint were applied. The patient was transferred to recovery room awake and in stable condition. Job ID: [id number] DocumentID: [id number] Dictated Date: 09/22/2022 11:53:42 Aluminum Siding Mechanic Date: 09/22/2022 17:33:00 Dictated By: DAWSON ENG MD
== END 2022-09-22 13:18 | disposition home or self-care (01) ==
LOC: SDC 10:10
PROVIDERS: ATTEND Orthopaedic Surgery
DX: G56.02 Carpal tunnel syndrome, left upper limb (principal); F17.210 Nicotine dependence, cigarettes, uncomplicated; Z95.1 Presence of aortocoronary bypass graft; Z28.310 Unvaccinated for COVID-19
CPT/HCPCS: 87081